=== PATIENT | male | born 2000 | race Caucasian/White ===

== ENCOUNTER 2019-01-11 16:20 | Emergency (ER) | payer SELFPAY ==
[~2019-01-11] VITALS: Ht 190.5 cm; Wt 96.8 kg
[2019-01-11] MEDS ORDERED: KETOROLAC TROMETHAMINE 10 MG TABLET PO ONE (17:30)
[2019-01-11 18:01] VITALS: BP 127/72
== END 2019-01-11 18:10 | disposition home or self-care (01) ==
LOC: EMS 16:22
DX: K02.9 Dental caries, unspecified (principal); F17.210 Nicotine dependence, cigarettes, uncomplicated